=== PATIENT | male | born 1955 ===

== ENCOUNTER → 2019-09-08 | Outpatient (CLI) | payer OTHER | END | disposition home or self-care (01) | LOC: PLD 14:19 → LAB SHORT 14:19 | DX: C44.1221 Squamous cell carcinoma of skin of right upper eyelid, including canthus (principal) | CPT/HCPCS: 88305 ==

== ENCOUNTER → 2019-10-13 | Outpatient (CLI) | payer OTHER | END | disposition home or self-care (01) | LOC: PLD 15:09 → LAB SHORT 15:09 | DX: C44.321 Squamous cell carcinoma of skin of nose (principal) | CPT/HCPCS: 88305 ==

== ENCOUNTER → 2023-11-18 | Outpatient (CLI) | payer MEDICARE, OTHER | END | disposition home or self-care (01) | LOC: LAB SHORT 15:13 → PLD 15:13 | DX: L82.1 Other seborrheic keratosis (principal) | CPT/HCPCS: 88305 ==